=== PATIENT | male | born 1955 | race Caucasian/White ===

== ENCOUNTER → 2021-03-06 09:07 | Outpatient (CLI) | payer MEDICARE, SELFPAY ==
--- NOTE | 2021-03-06 09:23 | DI.RAD.S_ITS ---
PROCEDURE: XR LUMBAR SPINE 2-3V INDICATIONS: LOW BACK PAIN TECHNIQUE: 3 views of the lumbar spine were acquired. COMPARISON: [facility], CR, XR LUMBAR SPINE 2 OR 3 VIEWS, 12/07/2018, 14:59. FINDINGS: Bones: Wedge-shaped T12 compression fracture results in 20 percent anterior height loss, similar prior exams. Minimal disc space narrowing and facet hypertrophy noted in the lower lumbar spine. Soft tissues: Overlying bowel gas pattern is normal. No suspicious soft tissue calcifications. Round calcifications noted in the right upper quadrant. IMPRESSION: Stable old T12 compression fracture Mild degenerative disc disease and arthropathy lower lumbar spine Cholelithiasis Dictated by: Dale Gar M.D. on 03/06/2021 at 12:09 Approved by: Dale Gar M.D. on 03/06/2021 at 12:15
== END ==
PROVIDERS: PCP Orthopaedic Surgery; Referring Provider Orthopaedic Surgery; Visit Provider Orthopaedic Surgery
DX: M54.5 Low back pain (principal); M51.36 Other intervertebral disc degeneration, lumbar region; M47.816 Spondylosis without myelopathy or radiculopathy, lumbar region; K80.20 Calculus of gallbladder without cholecystitis without obstruction; M48.54XS Collapsed vertebra, not elsewhere classified, thoracic region, sequela of fracture
CPT/HCPCS: 72100

== ENCOUNTER → 2021-05-05 11:52 | Outpatient (CLI) | payer MEDICARE, SELFPAY ==
--- NOTE | 2021-05-05 | DI.RAD.S_ITS ---
PROCEDURE: XR CHEST 2V INDICATIONS: Atherosclerotic heart disease of teller coronary artery with TECHNIQUE: 2 views of the chest were acquired. COMPARISON: None. FINDINGS: Surgical changes and devices: Median sternotomy wires are seen. Lungs and pleura: Blunting of left costophrenic angle is noted suggestive of trace left pleural effusion and left basilar atelectasis. Mild pulmonary vascular congestion is seen. No gross pneumothorax. Right lung is clear. Mediastinum: Mediastinal contours are normal. Heart size is normal. Bones and chest wall: No suspicious bony abnormalities. Soft tissues appear unremarkable. IMPRESSION: Trace left pleural effusion with left basilar atelectasis. Mild pulmonary vascular congestion. No gross pneumothorax. Dictated by: Emigdio Chiu M.D. on 05/05/2021 at 12:24 Approved by: Emigdio Chiu M.D. on 05/05/2021 at 12:24
== END ==
PROVIDERS: PCP Orthopaedic Surgery; Referring Provider Internal Medicine; Visit Provider Internal Medicine
DX: I25.10 Atherosclerotic heart disease of native coronary artery without angina pectoris (principal)
CPT/HCPCS: 71046

== ENCOUNTER 2023-04-11 23:29 | Observation (INO) | payer OTHER, SELFPAY ==
[2023-04-11 23:36] VITALS: BP 179/100; PULSE 70; RESP 20; TEMP 36.4; O2SAT 99
[2023-04-11 23:44] VITALS: PULSE 73; O2SAT 99
[2023-04-11] MEDS: ONDANSETRON 4 MG/2 ML INJ IV (23:49)
--- NOTE | 2023-04-11 23:54 | DI.US.S_ITS ---
PROCEDURE: US ABDOMEN LIMITED INDICATIONS: RUQ PAIN TECHNIQUE: Real-time focused scanning was performed of the abdomen, with image documentation. COMPARISON: None. FINDINGS: Liver: The liver demonstrates no focal mass lesions, with evaluation of the left lobe limited due to bowel gas. Gallbladder: The gallbladder demonstrates a few gallstones which appear impacted in the gallbladder neck, with the largest measuring up to approximately 1 cm. No gallbladder wall thickening or pericholecystic fluid. Patient was reportedly tender on examination. Biliary system: No intra or extrahepatic biliary ductal dilatation. Pancreas: Not well seen due to bowel gas. IMPRESSION: 1. Cholelithiasis including suspected impacted stones in the gallbladder neck. No pericholecystic fluid or gallbladder wall thickening to definitely suggest cholecystitis. Dictated by: Jas Murray M.D. on 04/12/2023 at 1:04 Approved by: Jas Murray M.D. on 04/12/2023 at 1:07
--- NOTE | 2023-04-11 23:55 | ED_ITS ---
HPI - Abdominal Pain General Chief Complaint: Abdominal Pain Stated Complaint: thinks gall bladder bursted Time Seen by Provider: 04/11/23 23:54 Source: patient Mode of arrival: Ambulatory Limitations: no limitations History of Present Illness HPI narrative: This is a 67-year-old male with history of prior CABG used to be on metoprolol and struck her thinners but is now just on aspirin daily. Patient states he had acute onset of right upper quadrant pain significantly worsened this evening. He has had gallbladder issues in the past and has known gallstones. States is much worse than typical and has not been resolving. No known fevers but has felt hot. No chest pain no shortness of breath. He is had nausea and vomiting. He states no diarrhea, no constipation. States pain is mostly in the right upper quadrant does radiate a little bit over towards the left. Does not radiate towards his back or flank. Patient denies dysuria urgency or frequency. He snap denies other abdominal surgeries. No tobacco, does drink 1 or 2 alcoholic drinks daily, uses marijuana but no other illicit. He tried some marijuana this evening without any improvement. He is accompanied by his today. Related Data Home Medications Medication Instructions Recorded Confirmed aspirin 81 mg capsule 81 mg PO DAILY 04/12/23 04/12/23 lansoprazole 30 mg delayed 30 mg PO DIRECTED 04/12/23 04/12/23 release,disintegrating tablet Allergies Allergy/AdvReac Type Severity Reaction Status Date / Time No Known Drug Allergies Allergy Verified 04/11/23 23:49 Review of Systems Review of Systems ROS Unobtainable: All systems reviewed & are unremarkable except as noted in HPI and below Patient History Social History household members: spouse Smoking Status: Former smoker alcohol intake: current Smoking Status: Never smoker alcohol intake frequency: 0-2 drinks per day Alcohol type: hard liquor Substance Use Type: marijuana Exam Narrative Exam Narrative: GENERAL: Alert and oriented x three, thin male in moderate distress. HEENT: Head normocephalic, atraumatic, EOMI, pupils reactive, face symmetric, moist mucous membranes NECK: Supple, full range of motion CARDIOVASCULAR: Regular rate and rhythm without murmurs, rubs or gallops. RESPIRATORY: Breath sounds equal bilaterally, no wheezes rales or rhonchi. ABDOMEN: Soft, positive for right upper quadrant tenderness Normoactive bowel sounds all 4 quadrants. No guarding or rebound, rigidity, no mass, no pulsatile mass or bruit. : No CVA tenderness. Male: normal external examination, no penile discharge or lesions,no inguinal hernias noted. EXTREMITIES: Normal range of motion, no clubbing or edema. Neurovascularly intact NEUROLOGICAL: Cranial nerves II through XII grossly intact. Moving all extremities SKIN: Warm, dry, no petechiae, no rashes or lesions. Initial Vital Signs Initial Vital Signs: Vital Signs Temperature 97.6 F 04/11/23 23:36 Pulse Rate 70 04/11/23 23:36 Respiratory Rate 20 04/11/23 23:36 Blood Pressure 179/100 H 04/11/23 23:36 Pulse Oximetry 99 04/11/23 23:36 Oxygen Delivery Method Room Air 04/11/23 23:36 Course Orders Ordered: ED Orders 04/11/23 23:40 Complete Blood Count AUTO DIFF Stat Comprehensive Metabolic Panel Stat Lipase Stat 04/11/23 23:45 EKG-12 Lead Stat 04/11/23 23:54 US abdomen limited Stat 04/12/23 00:04 Urine Microscopic Stat Hydromorphone HCl (Hydromorphone 1 Mg Inj) 1 mg IV Q3H PRN PRN Reason: Pain, Moderate (4-6) Last Admin: 04/12/23 04:15 Dose: 1 mg Documented By: AM Sodium Chloride (Normal Saline 0.9%) 1,000 mls @ 150 mls/hr IV CONT MILAN Last Admin: 04/12/23 03:52 Dose: 150 mls/hr Documented By: AM Ondansetron HCl (Ondansetron 4 Mg Odt) 4 mg PO NOW PRN PRN Reason: Nausea And Vomiting Last Admin: 04/12/23 03:45 Dose: 4 mg Documented By: AM Ondansetron HCl (Ondansetron 4 Mg/2 Ml Inj) 4 mg IV NOW PRN PRN Reason: Nausea And Vomiting Last Admin: 04/11/23 23:49 Dose: 4 mg Documented By: RL Discontinued Medications Hydromorphone HCl (Hydromorphone 1 Mg Inj) 1 mg IV NOW ONE Stop: 04/12/23 00:18 Last Admin: 04/12/23 00:20 Dose: 1 mg Documented By: SB Hydromorphone HCl (Hydromorphone 1 Mg Inj) 1 mg IV NOW ONE Stop: 04/12/23 00:33 Last Admin: 04/12/23 00:34 Dose: 1 mg Documented By: ANNALEE Sodium Chloride (Normal Saline 0.9%) 1,000 mls @ 1,000 mls/hr IV BOLUS ONE Stop: 04/12/23 00:54 Last Infusion: 04/12/23 01:05 Dose: 0 mls/hr Documented By: Admin: 04/11/23 23:59 Dose: 1,000 mls/hr Documented By: ANNALEE Piperacillin Sod/Tazobactam (Sod 4.5 gm/ Sodium Chloride) 100 mls @ 200 mls/hr IV NOW ONE Stop: 04/12/23 02:03 Last Admin: 04/12/23 03:52 Dose: 200 mls/hr Documented By: AM Ketorolac Tromethamine (Ketorolac 30 Mg/Ml Vial) 15 mg IV NOW ONE Stop: 04/11/23 23:56 Last Admin: 04/12/23 00:00 Dose: 15 mg Documented By: ANNALEE Morphine Sulfate (Morphine 4 Mg/Ml Inj) 4 mg IV NOW ONE Stop: 04/12/23 00:08 Last Admin: 04/12/23 00:14 Dose: 4 mg Documented By: ANNALEE Vital Signs Vital signs: Vital Signs - 8 hr 04/11/23 23:36 04/11/23 23:44 04/12/23 00:00 Temperature 97.6 F Pulse Rate 70 73 Respiratory Rate 20 Blood Pressure 179/100 H 186/91 H Pulse Oximetry 99 99 Oxygen Delivery Method Room Air 04/12/23 00:00 04/12/23 00:30 04/12/23 00:31 Temperature Pulse Rate 75 76 Respiratory Rate 28 H 24 Blood Pressure 141/65 H Pulse Oximetry 99 Oxygen Delivery Method 04/12/23 00:31 04/12/23 00:45 04/12/23 01:00 Temperature Pulse Rate 77 73 Respiratory Rate 18 14 Blood Pressure 149/76 H Pulse Oximetry 99 97 Oxygen Delivery Method Room Air 04/12/23 01:00 04/12/23 01:15 04/12/23 01:30 Temperature Pulse Rate 75 82 Respiratory Rate 23 13 Blood Pressure 159/76 H Pulse Oximetry 99 100 Oxygen Delivery Method 04/12/23 01:30 04/12/23 01:45 04/12/23 02:00 Temperature Pulse Rate 81 81 Respiratory Rate 14 12 Blood Pressure 157/74 H Pulse Oximetry 100 96 Oxygen Delivery Method Room Air 04/12/23 02:00 Temperature Pulse Rate 82 Respiratory Rate 14 Blood Pressure Pulse Oximetry 95 Oxygen Delivery Method MDM - Abdominal Pain Lab Data 04/11/23 23:40 04/11/23 23:40 Labs: Lab Results 04/11/23 04/11/23 04/11/23 Range/Units 23:40 23:40 23:58 WBC 10.3 (4.5-11.0) X10^3/uL RBC 4.52 (4.5-5.9) X10^6/uL Hgb 14.6 (13.5-17.5) g/dL Hct 40.8 L (41-53) % MCV 90.3 (80-100) fL MCH 32.2 (26-34) PG MCHC 35.7 (30-36) % RDW 13.8 (11.6-14.8) % Plt Count 184 (150-400) X10^3/uL Neut % (Auto) 85.1 H (50-75) % Lymph % (Auto) 8.9 L (25-40) % [place] % (Auto) 4.2 (3-14) % Eos % (Auto) 1.2 L (2-4) % Baso % (Auto) 0.6 (0-2) % Neut # (Auto) 8700 H (9505-5148) /uL Lymph # (Auto) 900 L (6318-3301) /uL [place] # (Auto) 400 (0-900) /uL Eos # (Auto) 100 (0-450) /uL Baso # (Auto) 100 (0-100) /uL Sodium 135 L (137-145) mmol/L Potassium 4.2 (3.4-5.1) mmol/L Chloride 103 (98-107) mmol/L Carbon Dioxide 24 (22-32) mmol/L BUN 17 (9-20) mg/dL Creatinine 0.84 (0.66-1.25) mg/dL Estimated GFR > 60 (>60) mL/min BUN/Creatinine Ratio 20.2 (6-22) Glucose 170 H (80-110) mg/dL Calcium 9.0 (8.4-10.2) mg/dL Total Bilirubin 0.7 (0.2-1.3) mg/dL AST 24 (17-59) IU/L ALT 18 (<50) IU/L Alkaline Phosphatase 109 (38-126) U/L Total Protein 8.0 (6.3-8.2) g/dL Albumin 4.4 (3.5-5.0) g/dL Globulin 3.6 (1.7-4.1) g/dL Albumin/Globulin Ratio 1.2 (1.0-2.8) Lipase 63 (23-300) U/L Urine RBC None seen (0-5/HPF) Urine WBC None seen (0-5/HPF) Ur Squamous Epith Cells None seen (0-5/HPF) Amorphous Sediment 4+ Urine Bacteria None seen (None) Ur Culture Indicated? Cult not indicated Point of care testing: Urine Dip Bedside Urine Glucose 100 mg/dl Bedside Urine Bilirubin - Negative Bedside Urine Ketone ++ 40 Urine Specific [place] 1.015 Bedside Urine Occult Blood - Negative Bedside Urine pH 8.0 Bedside Urine Protein +/- 15 Bedside Urine Urobilinogen - Negative Bedside Urine Nitrite - Negative Bedside Urine Leukocytes - Negative Esterase Imaging Data US - abdomen: Radiologist's Impression: [place] [address] Ultrasound Report Signed Patient: David Giron MR#: [id number] : 1955 Acct:[id number] Age/Sex: 67 / M Date of Service: 04/11/23 Loc: ED Accession Number: [id number] ?? Procedure: US abdomen limited Ordering Provider: Cande Sanz D.O. PROCEDURE: US ABDOMEN LIMITED ? INDICATIONS:? RUQ PAIN ? TECHNIQUE:? Real-time focused scanning was performed of the abdomen, with image docu mentation.? ? COMPARISON:? None. ? FINDINGS:? ? Liver: The liver demonstrates no focal mass lesions, with evaluation of the left lobe limited due to bowel gas. ? Gallbladder: The gallbladder demonstrates a few gallstones which appear impacted in the gallbladder neck, with the largest measuring up to approximately 1 cm.? No gallbladder wall thickening or pericholecystic fluid.? Patient was reportedly tender on examination. ? Biliary system: No intra or extrahepatic biliary ductal dilatation. ? Pancreas:? Not well seen due to bowel gas. ? IMPRESSION:? ? 1. Cholelithiasis including suspected impacted stones in the gallbladder neck.? No pericholecystic fluid or gallbladder wall thickening to definitely suggest cholecystitis. ? ? ? Dictated by: Jas Murray M.D. on 04/12/2023 at 1:04 ? ? Approved by: Jas Murray M.D. on 04/12/2023 at 1:07?? ECG Data Attestation: I personally reviewed and interpreted this ECG as follows: Interpretation: Sinus rhythm with sinus arrhythmia rate of 71 WI 170 QRS of 94 QTC [address] No acute ST elevation or depression noted. MDM Narrative Medical decision making narrative: This is a 67-year-old male who presents with complaint of sudden onset right upper quadrant pain similar to when he would his gallbladder has given him problems he has known gallstones. Patient states this is little bit worse than typical and has not been resolving. Labs, EKG, right upper quadrant ultrasound he is tender in his right upper quadrant on exam. Pain medication fluids and antinausea medication were provided. Patient has cholelithiasis with appears to be impacted stones in the gallbladder neck, no pericholecystic fluid or gallbladder wall thickening to suggest cholecystitis but stone is 1 cm. Patient is tender on examination. Patient's labs overall reassuring, no leukocytosis no elevated LFTs. Patient did have EKG sinus rhythm with sinus arrhythmia. Patient had several doses of pain medication he is much more comfortable at this time. Review patient's findings for today. Discussed with Dr. Montez, General surgery: admission for impacted gallstone. Reviewed patient takes an aspirin Excedrin daily has a history CABG but not on any other daily medications. Will bring in for admission likely OR later today. Discharge Plan Departure Patient Disposition: Admitted as Observation Clinical Impression: Impacted gallstone of gallbladder Admit Date/Time: 04/12/23 02:10 Admit Provider: Ilan Montez
[2023-04-11 23:59] LABS: Add Manual Diff / Slide Review NO; Basophils Absolute Auto 100 /uL (0-100); Basophils Percent Auto 0.6 % (0-2); Eosinophils Absolute Auto 100 /uL (0-450); Eosinophils Percent Auto 1.2 % (2-4); Hematocrit 40.8 % (41-53); Hemoglobin 14.6 g/dL (13.5-17.5); Lymphocytes Absolute Auto 900 /uL (1100-4500); Lymphocytes Percent Auto 8.9 % (25-40); Mean Corpuscular HGB Conc 35.7 % (30-36); Mean Corpuscular Hemoglobin 32.2 PG (26-34); Mean Corpuscular Volume 90.3 fL (80-100); Monocytes Absolute Auto 400 /uL (0-900); Monocytes Percent Auto 4.2 % (3-14); Neutrophils Absolute Auto 8700 /uL (1500-7000); Neutrophils Percent Auto 85.1 % (50-75); Platelet Count 184 X10^3/uL (150-400); Red Blood Cell Count 4.52 X10^6/uL (4.5-5.9); Red Cell Distribution Width 13.8 % (11.6-14.8); White Blood Cell Count 10.3 X10^3/uL (4.5-11.0)
[2023-04-11] MEDS: SODIUM CHLORIDE 0.9% 1,000 ML 1000 ML IV (23:59)
[2023-04-12] VITALS (26 sets, daily range): BP systolic 124–186; BP diastolic 52–91; PULSE 72–95; RESP 12–28; TEMP 36.4–36.8; O2SAT 94–100; BMI 23.0
[2023-04-12] MEDS: KETOROLAC 30 MG/ML VIAL 15 MG IV
--- NOTE | 2023-04-12 | PATH_ITS ---
[facility] Accession Number: [id number] No. of containers..01 Tissue . 01 Material submitted: . gallbladder - GALLBLADDER . 01 Diagnosis: Gallbladder, Cholecystectomy: Mild chronic, focally active cholecystitis with cholelithiasis and surface erosions. Negative for dysplasia and malignancy. MRV 04/19/2023 1541 Local . 01 Electronically signed: . Ramya Mayer MD, Pathologist NPI- [id number] . 01 Gross description: . The specimen is received in formalin labeled with the patient's name, , and gallbladder, and consists of a gallbladder measuring 9.3 x 3.5 x 2.6 cm with a full-thickness defect on the serosa measuring 0.6 cm in greatest dimension. The cystic duct margin is inked blue with no pericystic lymph node grossly identified. The lumen contains minimal bile and multiple black faceted calculi measuring up to 1.5 cm in greatest dimension grossly obstructing the cystic duct. The mucosa is green to brown and velvety with no yellow discoloration, polyps, or lesions identified. The rubio range from 0.2 cm to 0.4 cm thick. Manager Relocation sections to include the cystic duct margin and full-thickness sections are submitted in cassette A1. ([id number]) /FRR 04/16/2023 0424 Local . 01 Pathologist provided ICD-10: K80.10 . 01 CPT . 770450 Specimen Comment: A courtesy copy of this report has been sent to [phone] Performed at: 01 [facility] [address] [place] [address] [address] [facility], [place], [place] [id number] MD Jas Hernandez MD Phone: [phone]
[2023-04-12 00:02] LABS: Alanine Aminotransferase 18 IU/L (<50); Albumin 4.4 g/dL (3.5-5.0); Albumin Globulin Ratio 1.2 (1.0-2.8); Alkaline Phosphatase 109 U/L (38-126); Aspartate Aminotransferase 24 IU/L (17-59); BUN Creatinine Ratio 20.2 (6-22); Bilirubin Total 0.7 mg/dL (0.2-1.3); Blood Urea Nitrogen 17 mg/dL (9-20); Carbon Dioxide 24 mmol/L (22-32); Chloride 103 mmol/L (98-107); Estimated Glomerular Filt Rate > 60 mL/min (>60); Globulin 3.6 g/dL (1.7-4.1); Glucose 170 mg/dL (80-110); HEMOLYSIS 30 (0-50); Lipase 63 U/L (23-300); Potassium 4.2 mmol/L (3.4-5.1); Sodium 135 mmol/L (137-145)
[2023-04-12] MEDS: MORPHINE 4 MG/ML INJ IV (00:14)
[2023-04-12] MEDS: HYDROMORPHONE 1 MG INJ IV ×4 (00:20→07:53)
[2023-04-12 00:26] LABS: Amorphous Sediment Urine 4+; Bacteria Urine None Seen; Culture Indicated Urine Cult Not Indicated; RBC Urine None Seen (0-5/HPF); Squamous Epithelial Cell Urine None Seen (0-5/HPF); WBC Urine None Seen (0-5/HPF)
[2023-04-12] MEDS: ONDANSETRON 4 MG ODT PO (03:45)
[2023-04-12] MEDS: PIPERACILLIN/TAZO 4.5 GM in SODIUM CHLORIDE 0.9% 100 ML IV (03:52)
[2023-04-12] MEDS: SODIUM CHLORIDE 0.9% 1,000 ML 150 ML IV (03:52)
--- NOTE | 2023-04-12 09:10 | PC.NURSE ---
Addendum entered by Majo Hendrix R.N. 04/12/23 18:36: Patient back from surgery, he is tolerating a general diet, and had pain medications prior to coming up to the floor. He has 4 lap sites that are all cdi. Addendum entered by Majo Hendrix R.N. 04/12/23 12:16: Patient is visiting with his daughter and he states that he is comfortable at this time when asked. Will check on patient in 30 minutes. Addendum entered by Majo Hendrix R.N. 04/12/23 09:59: Patient stated that 1mg of iv dilaudid given to patient around 0800 did nothing for his r.upper quadrant pain. Given another 0.5mg and he states that he thinks this might be helping. Patient was under the impression that he was going to get pain medication every 1 hour. Explained to patient that Dr. Montez ordered 0.5mg every two hours as needed for pain. He voided 200cc of yellow urine and is resting. Original Note: Patient given iv pain medication for complaints of pain to r.upper quadrant, this has been helpful for patient. at bedside.
[2023-04-12] MEDS: LACTATED RINGERS 1,000 ML 100 ML IV ×2 (09:29→22:07)
[2023-04-12] MEDS: HYDROMORPHONE 0.5 MG INJ IV ×2 (09:37→12:52)
--- NOTE | 2023-04-12 10:36 | CM.DANOTE ---
DCP Assessment Note: Patient is a 67yo male here under inpatient status following an impacted gallstone of gallbladder. PCP Dr. Adal Jay in [facility] Payer Medicare and self pay GLASS SCULLION reviewed EMR. GLASS SCULLION entered room and introduced self and role. Patient was lying in bed moaning in pain and appeared A/Ox4. Patient reports being active and independent. 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 Patient lives in [place] with his girlfriend of 15years, Ana ([phone]). Girlfriend can support him at home. Patient does not have and does not use and DME. Patient was concerned about getting his pain medication. GLASS SCULLION updated nursing staff. Plan: patient will likely d/c home when medically stable with girlfriend and transport in POV. No needs identified at this time. CM team will continue to follow as needed. 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 No History Provided By Patient,Medical Record Prior Living Arrangements House Household Members spouse Type of transporation used prior to Drives own vehicle admit Independent with ADL's Yes Is patient alert and oriented? Yes Discharge Plan Home Transportation Arrangement girlfriend will drive home Whiteboard Updated in Patient Room with Yes name and ext. # of Wine Cellar Stock Clerk Review Status In Process Next Review Type Continued Stay Review
--- NOTE | 2023-04-12 10:52 | P.HP_ITS ---
History of Present Illness History of Present Illness Date Patient Seen: 04/12/23 Chief complaint: thinks gall bladder bursted Narrative: David is a 67-year-old man who presented overnight with severe right upper quadrant pain and was found to have an impacted gallstone in his gallbladder. He has had gallstones diagnosed in the past but was hesitant to have surgery because he is concerned about the dietary changes that might follow. The pain last night was more severe than anything he has had in quite a while. [facility] Social History household members: spouse Smoking Status: Former smoker alcohol intake: current Meds Home Medications and Allergies Home Medications Medication Instructions Recorded Confirmed Type aspirin 81 mg capsule 81 mg PO DAILY 04/12/23 04/12/23 History lansoprazole 30 mg delayed 30 mg PO DIRECTED 04/12/23 04/12/23 History release,disintegrating tablet Allergies Allergy/AdvReac Type Severity Reaction Status Date / Time No Known Drug Allergies Allergy Verified 04/11/23 23:49 Exam Vital Signs (past 8 hours): - 04/12/23 03:00 04/12/23 03:00 04/12/23 03:15 Temperature Pulse Rate 82 81 Respiratory Rate 14 14 Blood Pressure 136/65 Pulse Oximetry 94 94 Oxygen Delivery Method Room Air Oxygen Flow Rate 04/12/23 03:35 04/12/23 08:23 Temperature 97.6 F 98.0 F Pulse Rate 72 88 Respiratory Rate 15 18 Blood Pressure 147/75 H 124/80 Pulse Oximetry 98 97 Oxygen Delivery Method Oxygen Flow Rate 0 0 Oxygen Delivery Method Room Air Oxygen Flow Rate 0 Narrative Exam Narrative: Positive Koenig sign Objective Labs 04/11/23 23:40 04/11/23 23:40 Labs: Laboratory Results - last 24 hr 04/11/23 04/11/23 04/11/23 23:40 23:40 23:58 WBC 10.3 RBC 4.52 Hgb 14.6 Hct 40.8 L MCV 90.3 MCH 32.2 MCHC 35.7 RDW 13.8 Plt Count 184 Neut % (Auto) 85.1 H Lymph % (Auto) 8.9 L [place] % (Auto) 4.2 Eos % (Auto) 1.2 L Baso % (Auto) 0.6 Neut # (Auto) 8700 H Lymph # (Auto) 900 L [place] # (Auto) 400 Eos # (Auto) 100 Baso # (Auto) 100 Sodium 135 L Potassium 4.2 Chloride 103 Carbon Dioxide 24 BUN 17 Creatinine 0.84 Estimated GFR > 60 BUN/Creatinine Ratio 20.2 Glucose 170 H Calcium 9.0 Total Bilirubin 0.7 AST 24 ALT 18 Alkaline Phosphatase 109 Total Protein 8.0 Albumin 4.4 Globulin 3.6 Albumin/Globulin Ratio 1.2 Lipase 63 Urine RBC None seen Urine WBC None seen Ur Squamous Epith Cells None seen Amorphous Sediment 4+ Urine Bacteria None seen Ur Culture Indicated? Cult not indicated Assessment & Plan Assessment and plan (1) Impacted gallstone of gallbladder: Status: Acute Plan We reviewed the risks and benefits of laparoscopic cholecystectomy for acute cholecystitis and he would like to proceed. I mentioned the possibility of a drain and the slim possibility that we would have to convert to open cholecystectomy if inflammation and fibrosis is severe.
[2023-04-12] MEDS: LACTATED RINGERS 1,000 ML 42 ML IV (14:32)
[2023-04-12] MEDS: PIPERACILLIN/TAZO 3.375 GM in SODIUM CHLORIDE 0.9% 100 ML IV (15:05)
--- NOTE | 2023-04-12 15:12 | SUR.OPER ---
Supine on padded OR bed, head on pillow, arms secured on padded arm boards at <90 degrees abduction, legs uncrossed, safety belt at thigh, tape over blanket over lower legs, feet resting against foot board.
[2023-04-12] MEDS: BUPIVACAINE 0.5% W/ EPI (PF) 30 ML VIAL INJ (15:18)
--- NOTE | 2023-04-12 16:30 | PM.OP.1 ---
Operative Date/Time/Diagnoses Date of procedure: 04/12/23 Time of procedure: 16:30 Pre-op diagnosis: Acute cholecystitis Post-op diagnosis: same Procedure & Clinicians Procedure: Laparoscopic cholecystectomy Same procedure as scheduled: Yes Surgeon: Ilan Montez Anesthesia Type: General Operative Notes Procedure in detail: The patient was given preoperative antibiotic. The patient was brought to the operating room, placed on the table in the supine position. General endotracheal anesthesia was induced. The abdomen was prepped and draped. A time-out was performed. We made a 1 cm infraumbilical incision. We dissected down to the base of the umbilical stalk using cautery. We grasped the umbilical stalk with a Shayla clamp to elevate the abdominal wall. We scored the fascia in the midline with cautery 1 cm. We pierced the peritoneum with a Peon clamp. The Criselda port was placed and the abdomen was insufflated to 15 mmHg. A 5 mm 30 degree laparoscopic was inserted. There was no evidence of any injury from the entry. Next, we placed 5 mm ports in the subxiphoid position and right upper quadrant at the midclavicular line and anterior axillary line. Patient was then positioned in reverse Trendelenburg and the table was tilted to the left. The gallbladder was tense and distended. We decompressed the gallbladder with a needle by drawing out 30 mL of dark bile. We then grasped the gallbladder at the dome and retracted cephalad. The peritoneum covering the cystic structures was edematous. We dissected the cystic structures with a combination of hook cautery and blunt dissection. We obtained a critical view. We placed clips on the cystic duct and artery and divided the cystic duct and artery sharply between the clips. The gallbladder was then dissected off the liver and placed in a specimen retrieval bag. We irrigated the right upper quadrant and all the aspirate returned clear. We then removed the 5 mm ports under direct vision we removed the Criselda port. We then injected some local into the fascia and closed the fascia with 2 interrupted 0 Vicryl sutures. The skin incisions were closed with 4-0 Monocryl and Steri-Strips were applied. Band-Aids were applied over the Steri-Strips. EBL: 40 mL Specimen: Gallbladder and contents Post-operative Condition: stable Disposition: PACU
[2023-04-12] MEDS: OXYCODONE IR 5 MG TABLET PO (16:51)
[2023-04-12] MEDS: HYDROCODONE/ACET 5/325 TABLET 2 TAB PO (20:00)
[2023-04-12] MEDS: PANTOPRAZOLE DR 40 MG TABLET PO (20:31)
[2023-04-12] MEDS: IBUPROFEN 600 MG TABLET PO (22:07)
--- NOTE | 2023-04-12 22:44 | PC.NURSE ---
Patient is alert and oriented. Breath sounds CTA with RA sat of 94%. HRR. Denies nausea. BT present in left quadrants but absent in right and denies flatus. Having 7/10 gnawing right upper abdominal pain at start of shift and was medicated with vicodin and then pain decreased to 5/10 and was medicated with ibuprofen and 2207. Initially declined ice pack but eventually agreeable to trying and states he believes it is helping. Bandaid dressings x4 to abdomen are all CDI. Has been standing at side of bed to use urinal and denies dysuria. Is able to move himself in bed. Is wearing bilateral calf SCD's. Fall risk score is low. rooming rin.
[2023-04-13] MEDS: HYDROCODONE/ACET 5/325 TABLET 2 TAB PO ×3 (00:50→09:25)
[2023-04-13 00:58] VITALS: BP 115/59; PULSE 70; RESP 16; TEMP 36.7; O2SAT 95
[2023-04-13 05:03] VITALS: BP 120/56; PULSE 72; RESP 18; TEMP 36.5; O2SAT 96
[2023-04-13] MEDS: PANTOPRAZOLE DR 40 MG TABLET PO (05:55)
[2023-04-13 08:49] VITALS: BP 109/48; PULSE 70; RESP 18; TEMP 36.6; O2SAT 96
[2023-04-13] MEDS: IBUPROFEN 600 MG TABLET PO (09:24)
--- NOTE | 2023-04-13 09:38 | PM.DS.1 ---
History of Present Illness History of Present Illness Chief complaint: thinks gall bladder bursted Narrative: David is a 67-year-old man who presented overnight with severe right upper quadrant pain and was found to have an impacted gallstone in his gallbladder. He has had gallstones diagnosed in the past but was hesitant to have surgery because he is concerned about the dietary changes that might follow. The pain last night was more severe than anything he has had in quite a while. Discharge Providers Provider Date of admission: 04/12/23 02:10 Discharge Date: 04/13/23 Discharge provider: Ilan Montez MD Summary Hospital Course Discharge Diagnosis: Acute cholecystitis Hospital Course: The patient underwent a laparoscopic cholecystectomy on April 12, 2023. He tolerated the procedure well. By postoperative day 1 he was tolerating a diet with good pain control and ready to go home. Exam Vital Signs (past 8 hours): - 04/13/23 05:03 04/13/23 08:49 Temperature 97.7 F 97.8 F Pulse Rate 72 70 Respiratory Rate 18 18 Blood Pressure 120/56 L 109/48 L Pulse Oximetry 96 96 Oxygen Flow Rate 0 0 Oxygen Delivery Method Room Air Oxygen Flow Rate 0 Objective Labs 04/11/23 23:40 04/11/23 23:40 [facility] Medical History (Updated 04/12/23 @ 14:37 by Kalli Olguin RN) Bilateral inguinal hernia (~1990) Spontaneous pneumothorax (~1975) Surgical History (Updated 04/12/23 @ 14:47 by Kalli Olguin RN) Hx of CABG (~2015) Social History household members: significant other Smoking Status: Former smoker alcohol intake: current Discharge Plan Discharge Plan Patient Disposition: Home Provider Discharge Comment: No lifting greater than 20 lb for 2 weeks. Okay to remove the outer dressing and shower after 24 hours. Leave the Steri-Strips on until they start to peel off in 1-2 weeks. Discharge orders & Medications Prescriptions: New hydrocodone-acetaminophen 5-325 mg tablet 1 tab PO Q8H PRN (Reason: pain) Qty: 10 0RF Continued aspirin 81 mg Capsule 81 mg PO DAILY lansoprazole 30 mg tablet,disintegrat, delay rel 30 mg PO DIRECTED Rx Instructions: Before dinner Visit Report/Discharge Packet Stand Alone Forms: Patient Portal/API, Stroke Signs & Symptoms Discharge Data Attending Provider: Ilan Montez Admit Date/Time: 04/12/23 02:10
--- NOTE | 2023-04-26 10:26 | PC.NURSE ---
Late Entry: Piperacillin infusion initiated 04/12 at 0352 complete at 0423.
== END 2023-04-13 10:32 | disposition home or self-care (01) ==
LOC: ED 04-12 02:03 → AC 04-12 02:18
PROVIDERS: Admitting Provider Surgery; Emergency Provider Emergency Medicine; Referring Provider Emergency Medicine; Visit Provider Surgery
PROC: 0FT44ZZ Resection of Gallbladder, Percutaneous Endoscopic Approach (ICD-10-PCS; CPT 47562; principal; 2023-04-12 15:00)
DX: K80.00 Calculus of gallbladder with acute cholecystitis without obstruction (principal); Z95.1 Presence of aortocoronary bypass graft; Z79.82 Long term (current) use of aspirin
CPT/HCPCS: 47562; 36415; 76705; 80053; 81003; 81015; 83690; 85025; 93005; 93010; 96361; 96365; 96375; 96376; 99221; 99284; G0378; J1100; J1170; J1885; J2250; J2270; J2405; J2543; J2704; J3010

== ENCOUNTER → 2024-10-06 08:15 | Outpatient (CLI) | payer MEDICARE, SELFPAY ==
[2023-04-12 03:56] VITALS: BMI 23.0
[2024-10-06 09:05] LABS: Add Manual Diff / Slide Review NO; Basophils Absolute Auto 100 /uL (0-100); Basophils Percent Auto 2.6 % (0-2); Eosinophils Absolute Auto 200 /uL (0-450); Eosinophils Percent Auto 5.5 % (2-4); Hematocrit 40.9 % (41-53); Hemoglobin 14.2 g/dL (13.5-17.5); Lymphocytes Absolute Auto 1400 /uL (1100-4500); Lymphocytes Percent Auto 31.1 % (25-40); Mean Corpuscular HGB Conc 34.9 % (30-36); Mean Corpuscular Hemoglobin 31.5 PG (26-34); Mean Corpuscular Volume 90.3 fL (80-100); Monocytes Absolute Auto 300 /uL (0-900); Monocytes Percent Auto 6.9 % (3-14); Neutrophils Absolute Auto 2400 /uL (1500-7000); Neutrophils Percent Auto 53.9 % (50-75); Platelet Count 208 X10^3/uL (150-400); Red Blood Cell Count 4.53 X10^6/uL (4.5-5.9); Red Cell Distribution Width 13.4 % (11.6-14.8); White Blood Cell Count 4.4 X10^3/uL (4.5-11.0)
[2024-10-06 09:12] LABS: Hemoglobin A1C% w Est Avg Glu 5.6 % (4.0-6.0)
[2024-10-06 09:28] LABS: Alanine Aminotransferase 19 IU/L (<50); Albumin 4.1 g/dL (3.5-5.0); Albumin Globulin Ratio 1.5 (1.0-2.8); Alkaline Phosphatase 89 U/L (38-126); Aspartate Aminotransferase 29 IU/L (17-59); BUN Creatinine Ratio 19.8 (6-22); Bilirubin Total 1.1 mg/dL (0.2-1.3); Blood Urea Nitrogen 19 mg/dL (9-20); Calcium 9.1 mg/dL (8.4-10.2); Carbon Dioxide 23 mmol/L (22-32); Chloride 106 mmol/L (98-107); Cholesterol 205 mg/dL (140-199); Estimated Glomerular Filt Rate > 60 mL/min (>60); Globulin 2.7 g/dL (1.7-4.1); Glucose 106 mg/dL (80-110); HDL Cholesterol 61 mg/dL (40-60); HEMOLYSIS < 15 (0-50); LDL Cholesterol Calculated 132 mg/dL (<100); Magnesium 2.1 mg/dL (1.6-2.3); Potassium 4.1 mmol/L (3.4-5.1); Sodium 135 mmol/L (137-145); Total Protein 6.8 g/dL (6.3-8.2); Triglycerides 61 mg/dL (35-150)
== END ==
PROVIDERS: Referring Provider Internal Medicine Cardiovascular Disease; Visit Provider Internal Medicine Cardiovascular Disease
DX: I25.10 Atherosclerotic heart disease of native coronary artery without angina pectoris (principal); Z13.1 Encounter for screening for diabetes mellitus; E78.5 Hyperlipidemia, unspecified
CPT/HCPCS: 36415; 80053; 80061; 83036; 83735; 84443; 85025

== ENCOUNTER → 2024-10-11 12:41 | Outpatient (CLI) | payer MEDICARE, SELFPAY ==
[2023-04-12 03:56] VITALS: BMI 23.0
--- NOTE | 2024-10-11 12:43 | DI.CT.S_ITS ---
PROCEDURE: CT ANGIO CHEST INDICATIONS: FAMILY HX ANEURYSM TECHNIQUE: After the administration of intravenous contrast, 2.5 mm thick sections acquired from the lung apices to the posterior lung bases. Maximum intensity projection (MIP) oblique sagittal reformats were then acquired parallel to the aortic arch. For radiation dose reduction, the following was used: automated exposure control. COMPARISON: None. FINDINGS: Image quality: Excellent. Aorta: Thoracic aorta appears patent and normal in caliber without thoracic aortic aneurysm, dissection or significant stenosis. Origins of the great vessels appear patent. Lower Neck: No enlarged lymph nodes. Thyroid: No thyroid nodules which require sonographic follow up, per consensus guidelines. Axillae: No enlarged lymph nodes. Chest Wall: Unremarkable. Bones: Unremarkable. Lungs and Pleura: 9 mm nodule within the lateral right middle lobe (series 5, image 195). Pleural based rounded opacity involving the lateral aspect of the right lower lobe measuring 1.6 cm in diameter (series 5, image 190). Adjacent nodularity of the major fissure. Platelike opacity within the posterior left lower lobe with associated adjacent pleural thickening and small loculated pleural fluid within the posterior left lung base. Subpleural thickening involving the both lung apices, left > right, with associated bronchiectasis and additional subpleural interstitial thickening and cystic changes involving both upper lobes. Mild degree of centrilobular emphysema and larger subpleural bullae along the anterior right lower lobe abutting the major fissure. No evidence of pneumothorax. Heart: Heart size is normal. No pericardial effusion. Postsurgical changes from prior CABG. Thoracic Vessels: Pulmonary arteries demonstrate normal size. Mediastinum and Carla: No enlarged lymph nodes. Esophagus: No wall thickening. No hiatal hernia. Upper Abdomen: Visualized upper abdomen solid organs and bowel loops appear normal. IMPRESSION: 1. No evidence of thoracic aortic aneurysm. 2. 9 mm right middle lobe lung nodule. See table below for further management. 3. Pleural based rounded opacity involving the lateral aspect of the right lower lobe with associated interstitial changes and nodularity along the right major fissure. Findings possibly related to scarring or evolving rounded atelectasis. Possibility of an underlying neoplasm is not entirely excluded and continued follow-up is recommended. 4. Platelike opacity within the posterior left lower lobe with adjacent pleural thickening and tiny loculated pleural fluid within the left lung base most likely scarring. This is seen in adjacent to additional areas of scarring most notably the both lung apices, left > right and additional areas of interstitial scarring throughout both lungs. 5. Mildly enlarged right hilar lymph node measuring 1.5 cm in greatest transverse dimension possibly reactive in nature with other etiologies not entirely excluded. Fleischner Society criteria for SOLID lung nodule followup. Nodule size (mm)Low-risk patientHigh-risk patient<6 (single or multiple)No routine followup.Optional CT at 12 months. 6-8 (single or multiple)CT at 6-12 months, then optional CT at 18-24 mo.CT at 6-12 months, then CT at 18-24 months. >8 (single)CT at 3 months, PET-CT, or biopsy. Same as for low-risk pts. >8 (multiple)CT at 3-6 months, then optional CT at 18-24 mo.CT at 3-6 months, then CT at 18-24 months. Fleischner Society criteria for SUB-SOLID lung nodule followup. Solitary pure ground-glass nodules<6 mm (ground glass or part solid)No followup needed. 6 mm or larger (ground glass)CT at 6-12 months to confirm persistence, then CT every 2 years until 5 years.6 mm or larger (part solid)CT at 3-6 months to confirm persistence, then annual CT until 5 years if unchanged and solid component remains <6 mm. Multiple sub-solid nodules<6 mmCT at 3-6 months, then CT consider at 2 & 4 years for high risk patients. [address] at 3-6 months. Subsequent management based on most suspicious lesions. Recommendations do not apply to lung cancer screening, patients with immunosuppression, or patients with known primary cancer. Dictated by: Beck Cardenas M.D. on 10/11/2024 at 16:00 Approved by: Beck Carednas M.D. on 10/11/2024 at 16:11
== END ==
PROVIDERS: Referring Provider Internal Medicine Cardiovascular Disease; Visit Provider Internal Medicine Cardiovascular Disease
DX: R91.1 Solitary pulmonary nodule (principal); R59.0 Localized enlarged lymph nodes; Z82.49 Family history of ischemic heart disease and other diseases of the circulatory system; Z95.1 Presence of aortocoronary bypass graft
CPT/HCPCS: 71275; Q9967